=== PATIENT | male | born 1950 | race Caucasian/White ===

== ENCOUNTER 2018-10-28 07:15 | Day surgery (SDC) | payer MEDICARE ==
[2018-10-26 11:52] VITALS: BMI 25.7
[~2018-10-28 07:15] MED LIST: LACTATED RINGERS 1,000 ML IV SCH
[2018-10-28 08:07] VITALS: TEMP 97.6
[2018-10-28] MEDS ORDERED: LACTATED RINGERS 1,000 ML IV ONE ×2 (08:13)
[2018-10-28] MEDS ORDERED: LIDOCAINE 1% INJ 10MG/ML (20 ML MDV) ONE (08:18)
[2018-10-28] MEDS ORDERED: PROPOFOL 10 MG/ML 20 ML VIAL IV ONE (08:18)
--- NOTE | 2018-10-28 08:22 | P.GSHP ---
History of Present Illness H&P Date: 10/28/18 Chief Complaint: Colon polyps Patient here today for colonoscopy. He had a recent cologuard positive the patient states. The patient is a history of colon polyps. Last colonoscopy 6 years ago. No family history of colon cancer. No bowel related complaints. Past Medical History Additional Past Medical History / Comment(s): + COLOGARD History of Any Multi-Drug Resistant Organisms: None Reported Past Surgical History: Back Surgery Additional Past Surgical History / Comment(s): LAMINECTOMY. COLONOSCOPY Past Anesthesia/Blood Transfusion Reactions: No Reported Reaction Smoking Status: Former smoker - Past Family History Mother Family Medical History: No Reported History Medications and Allergies Home Medications Medication Instructions Recorded Confirmed Type Aspirin [Adult Low Dose Aspirin EC] 81 mg PO DAILY 10/26/18 10/26/18 History Multivitamins, Thera [Multivitamin 1 tab PO DAILY 10/26/18 10/26/18 History (formulary)] Allergies Allergy/AdvReac Type Severity Reaction Status Date / Time shellfish derived [Shellfish] Allergy Rash/Hives Verified 10/26/18 11:48 Surgical - Exam Vital Signs Pulse Resp BP Pulse Ox 56 L 18 162/82 99 10/28/18 08:05 10/28/18 08:05 10/28/18 08:05 10/28/18 08:05 Physical exam: General: Well-developed, well-nourished HEENT: Normocephalic, sclerae nonicteric Abdomen: Nontender, nondistended Extremities: No edema Neuro: Alert and oriented Assessment and Plan (1) Colon polyps Narrative/Plan: Will proceed with colonoscopy at this time. Current Visit: Yes Status: Acute Code(s): K63.5 - POLYP OF COLON SNOMED Code(s): 94436162
[2018-10-28 08:55] VITALS: RESP 16
[2018-10-28 09:10] VITALS: BP 154/92; PULSE 70
--- NOTE | 2018-10-28 09:36 | P.PCN ---
Date of Procedure: 10/28/18 Procedure(s) Performed: PREOPERATIVE DIAGNOSIS: Colon polyps, positive cologuard POSTOPERATIVE DIAGNOSIS: Multiple polyps, diverticulosis, mild sigmoid colitis PROCEDURE: Colonoscopy with snare polypectomy and biopsy ANESTHESIA: MAC SURGEON: Luisito Lewis M.D. SPECIMENS: Polyps ENDOSCOPIC PROCEDURE: The patient was placed on the endoscopy table in the left decubitus position. The Olympus colonoscope was inserted into the anus and passed under direct visualization to the base of the cecum. The appendiceal orifice was visualized. From that point the scope was slowly withdrawn inspecting all surfaces carefully. There were no neoplastic inflammatory or polypoid lesions throughout the cecum or ascending colon. In the mid transverse colon a small polyp was identified and removed using the snare with cautery technique. An additional small polyp was identified and removed in a similar fashion in the descending, sigmoid, and rectum. A total of 4 polyps were removed and sent to pathology. The patient had left-sided diverticulosis present. In the sigmoid colon there was noted be a small section of sigmoid colon that had mild mucosal erythema. Biopsies were taken to evaluate for colitis. This may be related to a mild nonspecific colitis or even diverticulitis. Digital rectal examination was normal. The patient was taken to the recovery room in stable condition per anesthesia guidelines. RECOMMENDATIONS: Await biopsy results. Recommend follow-up colonoscopy 5 years.
== END 2018-10-28 09:43 | disposition home or self-care (01) ==
LOC: ORWHC2ENDO 07:15
PROVIDERS: ATTEND Surgery
DX: D12.4 Benign neoplasm of descending colon (principal); D12.5 Benign neoplasm of sigmoid colon; D12.3 Benign neoplasm of transverse colon; D12.8 Benign neoplasm of rectum; K57.30 Diverticulosis of large intestine without perforation or abscess without bleeding; K52.9 Noninfective gastroenteritis and colitis, unspecified; R19.5 Other fecal abnormalities; Z86.010 Personal history of colon polyps; Z79.82 Long term (current) use of aspirin; Z91.013 Allergy to seafood; Z87.891 Personal history of nicotine dependence
CPT/HCPCS: 88305; 45380; 45385; J2001; J2704

== ENCOUNTER → 2021-01-29 | Outpatient (CLI) | payer MEDICARE ==
--- NOTE | 2021-01-29 12:25 | MR ---
EXAMINATION TYPE: MR shoulder RT wo con DATE OF EXAM: 01/29/2021 COMPARISON: Pain HISTORY: Right shoulder pain TECHNIQUE: Multiplanar, multisequence imaging of the right shoulder is performed without contrast. FINDINGS: There is a complete tear of the supraspinatus tendon with retraction the level of the later al margin of the acromion. Infraspinatus demonstrates increased signal along the anterior fibers sugg estive of partial tear near its insertion with no through thickness tear or retraction. Subscapularis tendon intact. There is fluid in the subacromial subdeltoid bursa hypertrophic arthropathy of the AC joint with mass effect upon the supraspinatus tendon and muscle. There is a degree of atrophy of the rotator cuff mu sculature correlate clinically. Small amount of fluid in the glenohumeral joint. Inferior glenohumeral ligament intact. Biceps tendon is well situated within the bicipital groove with increased fluid surrounding the tendon compatible with tendinosis. Labrum are grossly intact but non arthrogram technique. IMPRESSION: 1. Hypertrophic arthropathy of the AC joint with impingement. Complete through thickness tear of the supraspinatus tendon with retraction as discussed above. 2. Partial tear anterior fibers measuring approximately 3 mm insertion infraspinatus tendon. 3. Bicipital tendinosis.
== END | disposition home or self-care (01) ==
LOC: RADMRIMAIN 11:04
PROVIDERS: ATTEND Orthopaedic Surgery
DX: M75.111 Incomplete rotator cuff tear or rupture of right shoulder, not specified as traumatic (principal); M12.811 Other specific arthropathies, not elsewhere classified, right shoulder; M75.41 Impingement syndrome of right shoulder; M67.813 Other specified disorders of tendon, right shoulder

== ENCOUNTER → 2021-03-07 | Outpatient (CLI) | payer MEDICARE ==
[2021-03-07 11:17] LABS: Basophils % (A) 1 %; Eosinophils # (A) 0.1 k/uL (0-0.7); Eosinophils % (A) 2 %; HCT 39.9 % (39.0-53.0); HGB 13.7 gm/dL (13.0-17.5); Lymphocytes # (A) 1.4 k/uL (1.0-4.8); Lymphocytes % (A) 29 %; MCH 33.7 pg (25.0-35.0); MCHC 34.4 g/dL (31.0-37.0); MCV 98.1 fL (80.0-100.0); Mean Platelet Volume 6.8; Monocytes # (A) 0.5 k/uL (0-1.0); Monocytes % (A) 10 %; Neutrophils # (A) 2.7 k/uL (1.3-7.7); Neutrophils % (A) 55 %; Platelet Count 167 k/uL (150-450); RBC 4.07 m/uL (4.30-5.90); RDW 12.7 % (11.5-15.5); WBC 4.9 k/uL (3.8-10.6)
[2021-03-07 11:30] LABS: Potassium 4.7 mmol/L (3.5-5.1)
== END | disposition home or self-care (01) ==
LOC: LABPAT 09:55
PROVIDERS: ATTEND Orthopaedic Surgery
DX: Z01.812 Encounter for preprocedural laboratory examination (principal); M75.41 Impingement syndrome of right shoulder
CPT/HCPCS: 36415; 80051; 85025; 93005

== ENCOUNTER → 2021-03-15 | Day surgery (SDC) | payer MEDICARE ==
[~2021-03-15] MED LIST changes: +DEXAMETHASONE SOD PHOSPHATE 4 MG/ML 1 ML VIAL IV ONE; +DEXAMETHASONE SOD PHOSPHATE 4 MG/ML 1 ML VIAL ONE; +GLYCOPYRROLATE 0.2 MG/ML 2 ML VIAL ONE; +HYDROmorphone 0.5 MG/0.5 ML SYRINGE IVP PRN; +LACTATED RINGERS 1,000 ML IV ONE; +LIDOCAINE 1% INJ 10MG/ML (20 ML MDV) ONE; +MIDAZOLAM 2 MG/2 ML VIAL IV ONE; +MIDAZOLAM 2 MG/2 ML VIAL IV PRN; +ONDANSETRON 4 MG/2 ML VIAL IVP ONE; +PROPOFOL 10 MG/ML 20 ML VIAL IV ONE; +ROPIVACAINE 5 MG/ML 30 ML VIAL ONE; +SUCCINYLCHOLINE CHLORIDE 100 MG/5 ML SYR IV ONE; +fentaNYL (PF) 50 MCG/ML 2 ML AMP ONE
[2021-03-15 09:20] VITALS: TEMP 96.8
--- NOTE | 2021-03-15 09:22 | P.OP ---
Date of Procedure: 03/15/21 Preoperative Diagnosis: Right shoulder impingement Postoperative Diagnosis: 1. Right shoulder rotator cuff tear 2. Right shoulder impingement 3. Right shoulder acromioclavicular joint osteoarthritis 4. Right shoulder partial long head biceps tendon tear Procedure(s) Performed: 1. Right shoulder arthroscopic rotator cuff repair 2. Right shoulder arthroscopic subacromial decompression 3. Right shoulder arthroscopic Ventura procedure 4. Right shoulder arthroscopic biceps tenotomy Implants: 4Arthrex 4.75 swivel lock anchors Anesthesia: GETA, regional (Interscalene block) Surgeon: Ashish Savage Tool Grinder Operator External #1: Waldemar Perkins Estimated Blood Loss (ml): 11 Pathology: none sent Condition: stable Disposition: PACU Indications for Procedure: 71-year-old patient seen with progressive right shoulder pain. After treatment options were discussed, he elected to proceed with arthroscopy. Operative Findings: See description of procedure Description of Procedure: Patient underwent an interscalene block by department of anesthesia. The patient was then taken to the operative suite. The patient underwent a general anesthetic by the department of anesthesia. The patient was placed into a lateral position and secured. There was appropriate padding of the bony prominence. Right shoulder was then prepped and draped in normal sterile orthopedic fashion. We placed the extremity in 10 pounds of longitudinal traction. A posterior incision was now made for a posterior working portal site. The trocar and cannula were inserted into the glenohumeral joint. Arthroscopy was initiated. Spinal needle was now inserted anteriorly, to ascertain the anterior working portal site. An incision was now made in that area, a trocar was inserted followed by a probe. There was some hyperemia and partial tearing of the long head biceps tendon. There were grade 1 chondromalacia changes of the humeral head. The labrum was probed and found to be stable. I performed an arthroscopic biceps tenotomy. I probed the labrum and it was sewn be stable. At this point instruments removed from glenohumeral joint. Utilizing the posterior working portal site, the trocar and cannula were inserted into the subacromial space. Arthroscopy initiated. I made an incision 2 fingerbreadths lateral to the acromion. I introduced my trocar followed by my ArthroCare ablator. I now began ablating thick subacromial bursal tissue, which exposed the undersurface of the anterior acromion. There was diminished subacromial space. There was a very prominent anterior acromion. A motorized bur was introduced and a subacromial decompression was performed. I also excised some osteophytes off the inferior aspect of the distal clavicle. The AC joint was visualized and noted to be fairly arthritic. The motorized bur was introduced in the anterior portal site and a Ventura procedure was performed without difficulty, decompressing the AC joint nicely. I turned my attention to the rotator cuff. There was a 3 cm rotator cuff tear. It was retracted about 2 cm but I could pin puller the footprint. I debrided the margins getting down to stable tendon tissue. I introduced my motorized bur and abraded the footprint area, getting some petechial bleeding. I now made an accessory portal site off the lateral aspect of the acromion. I punched 2 holes medial for medial row fixation with the assistance of Waldemar TIJERINA carefully tapping the punch with a mallet as I held the punch and the camera. I now introduced both anchors into the pre-punched holes and Waldemar TIJERINA tapped them with the mallet as I held anchors and the camera. Waldemar TIJERINA now screwed the anchors in place a while I held the anchor guide and camera. All 8 limbs of suture were now passed through good bites of rotator cuff tendon. I now punched 2 holes for lateral row fixation again I held the punch and camera while Johnny TIJERINA used a mallet to tap in the punch. We now passed sutures through both anchors and individually I introduced the anchors into the pre-punch holes I held the anchor guide in position with one hand holding the camera with the other hand while Waldemra TIJERINA tensioned the sutures and screwed in the anchors one at a time. All residual suture limbs were now clipped. We had good compression of the tendon along the entire footprint. Instruments now removed from the portal site s. All portal sites were approximated with nylon suture. Sterile dressings were applied followed by a shoulder immobilizer. Waldemar TIJERINA assisted in this complex case. The patient was awakened, transferred to a bed, and taken to recovery in stable condition.
[2021-03-15 09:52] VITALS: RESP 20
[2021-03-15 10:59] VITALS: BP 137/80; PULSE 73
--- NOTE | 2021-03-16 07:41 | P.ANPRN ---
Procedure Note - Anesthesia - Nerve Block Performed Right Interscalene Single Time Out Performed: Yes Date of Procedure: 03/15/21 Procedure Start Time: 06:49 Procedure Stop Time: 06:56 Location of Patient: PreOp Indication: Acute Post-Operative Pain, Requested by Surgeon Sedation Type: Sedate with meaningful contact maintained Preparation: Sterile Prep Position: Supine Needle Types: Pajunk Needle Gauge: 21 Ultrasound used to visualize needle placement: Yes Ultrasound used to observe medication spread: Yes Blood Aspirated: No Pain Paresthesia on Injection Noted: No Resistance on Injection: Normal Image Stored and Saved: Yes Events: Uneventful and Well Tolerated (ropi .5% 25 cc plus dexamethasone 4m)
== END | disposition home or self-care (01) ==
LOC: OR 05:58
PROVIDERS: ATTEND Orthopaedic Surgery
DX: M75.101 Unspecified rotator cuff tear or rupture of right shoulder, not specified as traumatic (principal); M19.011 Primary osteoarthritis, right shoulder; S46.111A Strain of muscle, fascia and tendon of long head of biceps, right arm, initial encounter; X58.XXXA Exposure to other specified factors, initial encounter; M94.211 Chondromalacia, right shoulder; M25.711 Osteophyte, right shoulder; Z98.890 Other specified postprocedural states; Z79.82 Long term (current) use of aspirin; Z79.899 Other long term (current) drug therapy; Z88.0 Allergy status to penicillin
CPT/HCPCS: 64415; 76942; 29826; 29827; 29824; C1713; C1894; J2250; J1100; J0690; J2405; J2001; J3010; J2795; J0330; J2704

== ENCOUNTER → 2022-09-07 | Outpatient (CLI) | payer MEDICARE ==
--- NOTE | 2022-09-08 21:51 | MR ---
EXAMINATION TYPE: MR shoulder LT wo con DATE OF EXAM: 09/07/2022 COMPARISON: Outside left shoulder x-ray 4 days ago. HISTORY: Left shoulder pain and limited range of motion for 2 months. TECHNIQUE: Multiplanar, multisequence imaging of the left shoulder is performed without contrast. FINDINGS: Rotator Cuff: Significant clearing of the supraspinatus tendon with small remnant intact fibers coron al image 15 noted. Infraspinatus tendon intact. Rotator cuff muscle bulk preserved. Acromioclavicular Joint: [id number] narrowing and spurring with moderate capsular hypertrophy. Glenohumeral Joint: Large sized joint effusion extending anteriorly Labrum: The labrum appears grossly intact given limitation of non-arthrogram study. Biceps Tendon: The long head of biceps is in normal location within bicipital groove. Bone marrow signal: No focal abnormal marrow signal is appreciated. Other: No additional significant abnormality is appreciated. IMPRESSION: 1. Near-complete tear of the distal supraspinatus tendon with minimal remnant fibers intact. 2. Large glenohumeral joint effusion extending anteriorly.
== END | disposition home or self-care (01) ==
LOC: RADMRIMAIN 10:58
PROVIDERS: ATTEND Orthopaedic Surgery
DX: M75.112 Incomplete rotator cuff tear or rupture of left shoulder, not specified as traumatic (principal); M25.412 Effusion, left shoulder

== ENCOUNTER 2023-07-09 11:02 | Day surgery (SDC) | payer MEDICARE ==
--- NOTE | 2023-07-08 12:31 | P.HPOR ---
History of Present Illness H&P Date: 07/08/23 Subjective: This is a 72 year old male that presents today for initial evaluation regarding several year history of progressively worsening right wrist pain and numbness and tingling that involves the thumb, index and middle fingers. He states for the last 8 years he has had progressively increasing swelling in the wrist with activity. He denies any prior injury. He states around 8 years ago he did have an x-ray and was told at that time he had early signs of arthritis in the wrist. He also states over the last 6 months he has noticed progressively increasing numbness specifically in the middle finger and index fingers. It is worse in the morning when he wakes up. Physical Examination: RUE: AIN/PIN/Radial/Ulnar/Median motor intact. Radial/Ulnar/Median SILT. 2+/4 Radial/Ulnar pulses palpated. 5/5 APB, 5/5 FDI. Negative Finkelsteins, negative CMC grind, positive Durkan's compression. Positive scaphoid shift. Wrist Flexion 70, Wrist Extension 60. Imaging: X-Rays of the right wrist, 3 view taken in office today demonstrate advanced SLAC wrist arthritis with preserved radial lunate articulation. Impression: 1.) Right SLAC wrist arthritis 2.) Right carpal tunnel syndrome Plan: Diagnosis and treatment options were discussed with the patient. We discussed findings of SLAC wrist arthritis and treatment options for him. Right now he states that the wrist pain is more intermittent and that he can live with it and it's managed by anti-inflammatories. Regarding the right carpal tunnel syndrome. He has failed to respond to night time splinting and wishes to pursue a right endoscopic vs open carpal tunnel release. Risks and benefits of surgery including bleeding, infection, damage to surrounding tissue, need for further surgery, possible need to convert to open procedure, residual numbness were discussed and the patient wished to go forward with surgery. -Wade Abarca DO Orthopedic Hand/Upper Extremity Surgeon Past Medical History Past Medical History: Atrial Fibrillation, Hypertension, Osteoarthritis (OA) Additional Past Medical History / Comment(s): + COLALYSON E.D. arthritis wrists. numbness to finger right hand. hx Covid. History of Any Multi-Drug Resistant Organisms: None Reported Past Surgical History: Back Surgery Additional Past Surgical History / Comment(s): LAMINECTOMY, bilateral SHOULDER ATRHROSCOPY, COLONOSCOPY. Past Anesthesia/Blood Transfusion Reactions: No Reported Reaction Smoking Status: Former smoker - Past Family History Mother Family Medical History: No Reported History Sister(s) Family Medical History: Cancer Medications and Allergies Home Medications Medication Instructions Recorded Confirmed Type Multivitamins, Thera [Multivitamin 1 tab PO DAILY 10/26/18 07/03/23 History (formulary)] tadalafiL [Cialis] 5 mg PO QAM 03/13/21 07/03/23 History Apixaban [Eliquis] 5 mg PO BID 10/28/22 07/03/23 History Metoprolol Tartrate [Lopressor] 100 mg PO BID 10/28/22 07/03/23 History Allergies Allergy/AdvReac Type Severity Reaction Status Date / Time shellfish derived [Shellfish] Allergy Rash/Hives Verified 07/03/23 12:28 Penicillins AdvReac DIZZINESS Verified 07/03/23 12:28 Physical Examination Osteopathic Statement: *. No significant issues noted on an osteopathic structural exam other than those noted in the History and Physical/Consult.
[~2023-07-09 11:02] MED LIST changes: -DEXAMETHASONE SOD PHOSPHATE 4 MG/ML 1 ML VIAL IV ONE; -DEXAMETHASONE SOD PHOSPHATE 4 MG/ML 1 ML VIAL ONE; -GLYCOPYRROLATE 0.2 MG/ML 2 ML VIAL ONE; -LACTATED RINGERS 1,000 ML IV ONE; -LIDOCAINE 1% INJ 10MG/ML (20 ML MDV) ONE; -MIDAZOLAM 2 MG/2 ML VIAL IV ONE; -MIDAZOLAM 2 MG/2 ML VIAL IV PRN; -ONDANSETRON 4 MG/2 ML VIAL IVP ONE; -PROPOFOL 10 MG/ML 20 ML VIAL IV ONE; +Pre Op ABX Message 1 EACH MISC MISCELLANE ONE; -ROPIVACAINE 5 MG/ML 30 ML VIAL ONE; -SUCCINYLCHOLINE CHLORIDE 100 MG/5 ML SYR IV ONE; -fentaNYL (PF) 50 MCG/ML 2 ML AMP ONE
[2023-07-09 11:25] VITALS: RESP 16; TEMP 97.1
[2023-07-09] MEDS ORDERED: BUPIVACAINE (PF) 0.5% 30 ML VIAL SQ ONE ×2 (12:35→12:47)
[2023-07-09] MEDS ORDERED: LIDOCAINE 1% INJ 10MG/ML (20 ML MDV) SQ ONE ×2 (12:36→12:47)
[2023-07-09] MEDS ORDERED: fentaNYL (PF) 50 MCG/ML 2 ML AMP ONE (12:38)
[2023-07-09] MEDS ORDERED: MIDAZOLAM 2 MG/2 ML VIAL ONE (12:38)
[2023-07-09] MEDS ORDERED: PROPOFOL 10 MG/ML 20 ML VIAL IV ONE (12:38)
--- NOTE | 2023-07-09 12:59 | P.OP ---
Date of Procedure: 07/09/23 Preoperative Diagnosis: Right carpal tunnel syndrome Postoperative Diagnosis: Right carpal tunnel syndrome Procedure(s) Performed: Right endoscopic carpal tunnel release Anesthesia: MAC Surgeon: Wade Abarca Dev Ops Engineer #1: Waldemar Perkins Estimated Blood Loss (ml): 0 Pathology: none sent Condition: stable Disposition: PACU Description of Procedure: This is a 73 year old male who presents today for a right endoscopic carpal tunnel release after having failed conservative treatment in the past. Risks and benefits of surgery were discussed with the patient including bleeding, damage to surrounding tissue, infection, need to convert to open procedure, need for further surgery as well as risks of anesthesia including pulmonary embolism and even and the patient wished to proceed with surgical intervention. The patients was seen in the pre-operative area by myself. Consent and H&P were completed and updated. The correct extremity was marked in the pre-operative area by myself and all other questions were answered. Operative Narrative: The patient was brought to the operating room by the department of anesthesia. They remained on the portable stretcher and a rolling hand table was brought to the side of the operative extremity. Pre-operative time out was performed indicating the correct patient, procedure and laterality. All in the room agreed. The patient was then drifted off to sleep by the department of anes thesia. MAC anesthesia was utilized and a 50:50 mixture of 1% Lidocaine and 0.5% bupivacaine was injected into the subcutaneous tissues of the palmar skin, 8ccs total. A nonsterile tourniquet was then applied to the operative extremity and the right upper extremity was then prepped and draped in normal sterile fashion. The operative extremity was the exsanguinated with an esmarch bandage and the tourniquet was inflated to 250mmHg. 15 blade scalpel was utilized to make a transverse incision on the palmar skin just ulnar to the palmaris longus tendon at the level of the distal wrist crease. Ragnell retractor was then placed radially and blunt dissection was performed to reveal the distal forearm fascia. This was lifted with fine Raul pick ups and Littler tenotomy scissors were then used to open the forearm fascia transversely and a double skin hook was then placed. Hamate finder was placed into the carpal tunnel and then sequential sized dilators were inserted followed by the synovial elevator to separate the flexor tenosynovium from the undersurface of the transverse carpal ligament and a washboard texture was felt. The MicroAire endoscopic carpal tunnel release system gun was the then inserted into the carpal tunnel hugging the deep portion of the transverse carpal ligament in line with the base of the ring finger. Transverse fibers of the ligament were directly visualized. Pressure was applied on the palm to reveal the distal extent of the transverse carpal ligament. The blade was then deployed and the distal half of the transverse carpal ligament was released. The scope was then brought distal again and remaining transverse fibers were incised with the blade. The proximal half of the transverse carpal ligament was then divided and again the scope was advanced distal and remaining transverse fibers were incised with the blade. The radial and ulnar leaflets were directly visualized and mobile consistent with complete release. Tenotomy scissors were then util ized to release the remaining distal forearm fascia under direct visualization taking care to preserve the palmar cutaneous branch of the median nerve. Skin closure was performed with interrupted 4-0 Monocryl suture followed by steri strips. Sterile dressing was applied consisting 4x4s, Webril, and an rita bandage. Tourniquet was let down and the hand immediately was well perfused. The patient was then woken by the department of anesthesia and transferred to PACU in stable condition. Waldemar TIJERINA was present for the case in its entirety and assisted in major portions of the case and protection of vital neurovascular structures. Wade Abarca D.O. Orthopedic Hand/Upper Extremity Surgeon
[2023-07-09 13:25] VITALS: BP 148/83; PULSE 75
== END 2023-07-09 13:57 | disposition home or self-care (01) ==
LOC: OR 11:02
PROVIDERS: ATTEND Orthopaedic Surgery Hand Surgery
DX: G56.01 Carpal tunnel syndrome, right upper limb (principal); M19.031 Primary osteoarthritis, right wrist; I10 Essential (primary) hypertension; I48.91 Unspecified atrial fibrillation; Z79.01 Long term (current) use of anticoagulants; Z86.16 Personal history of COVID-19; Z87.891 Personal history of nicotine dependence; Z88.0 Allergy status to penicillin; Z79.899 Other long term (current) drug therapy
CPT/HCPCS: 29848; J2250; J2001; J3010; J2704; J0665

== ENCOUNTER 2024-03-16 08:54 | Day surgery (SDC) | payer MEDICARE ==
[2024-03-10 12:39] VITALS: BMI 25.7
[~2024-03-16 08:54] MED LIST changes: -HYDROmorphone 0.5 MG/0.5 ML SYRINGE IVP PRN; -LACTATED RINGERS 1,000 ML IV SCH; +LIDOCAINE 1% (10MG/ML) FOR IV START INTRADERMA PRN; -Pre Op ABX Message 1 EACH MISC MISCELLANE ONE
[2024-03-16 09:22] VITALS: RESP 18; TEMP 97
[2024-03-16] MEDS: LACTATED RINGERS 1,000 ML IV SCH (09:28)
[2024-03-16] MEDS: IV FLUID CONTINUATION 1,000 ML IV ONE ×2 (09:29→10:45)
[2024-03-16] MEDS ORDERED: LIDOCAINE 2% (PF) 20 MG/ML 5 ML VIAL ONE (10:16)
[2024-03-16] MEDS ORDERED: PROPOFOL 10 MG/ML 20 ML VIAL IV ONE (10:16)
--- NOTE | 2024-03-16 10:20 | P.GSHP ---
History of Present Illness H&P Date: 03/16/24 Chief Complaint: Screening, history of polyps 74-year-old male here for colonoscopy. Last colonoscopy 5 years ago. Patient had multiple polyps at that time. 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 No bowel complaints. No family history of colon cancer. Past Medical History Past Medical History: Atrial Fibrillation, Hypertension, Osteoarthritis (OA) Additional Past Medical History / Comment(s): + COLOGARD, E.D. arthritis wrists. numbness to finger right hand. hx Covid. History of Any Multi-Drug Resistant Organisms: None Reported Past Surgical History: Back Surgery, Orthopedic Surgery Additional Past Surgical History / Comment(s): LAMINECTOMY, bilateral SHOULDER ATRHROSCOPY, COLONOSCOPY. RT CTR Past Anesthesia/Blood Transfusion Reactions: No Reported Reaction Smoking Status: Former smoker - Past Family History Mother Family Medical History: No Reported History Sister(s) Family Medical History: Cancer Medications and Allergies Home Medications Medication Instructions Recorded Confirmed Type Multivitamins, Thera [Multivitamin 1 tab PO DAILY 10/26/18 03/16/24 History (formulary)] tadalafiL [Cialis] 5 mg PO QAM 03/13/21 03/16/24 History Apixaban [Eliquis] 5 mg PO BID 10/28/22 03/16/24 History Metoprolol Tartrate [Lopressor] 100 mg PO BID 10/28/22 03/16/24 History Allergies Allergy/AdvReac Type Severity Reaction Status Date / Time shellfish derived [Shellfish] Allergy Rash/Hives Verified 03/16/24 09:12 Penicillins AdvReac DIZZINESS Verified 03/16/24 09:12 Surgical - Exam Vital Signs Temp Pulse Resp BP Pulse Ox 97.0 F L 76 18 154/79 99 03/16/24 09:19 03/16/24 09:19 03/16/24 09:19 03/16/24 09:19 03/16/24 09:19 Physical exam: General: Well-developed, well-nourished HEENT: Normocephalic, sclerae nonicteric Abdomen: Nontender, nondistended Extremities: No edema Neuro: Alert and oriented Assessment and Plan (1) Colon polyps Narrative/Plan: Will proceed with colonoscopy at this time. Current Visit: No Status: Acute Code(s): K63.5 - POLYP OF COLON SNOMED Code(s): 17358313
--- NOTE | 2024-03-16 10:42 | P.PCN ---
Date of Procedure: 03/16/24 Procedure(s) Performed: PREOPERATIVE DIAGNOSIS: Colon cancer screening with history of polyps POSTOPERATIVE DIAGNOSIS: Multiple colon polyps, diverticulosis PROCEDURE: Colonoscopy with snare polypectomy ANESTHESIA: MAC SURGEON: Luisito Lewis M.D. SPECIMENS: Polyps ENDOSCOPIC PROCEDURE: The patient was placed on the endoscopy table in the left decubitus position. The Olympus colonoscope was inserted into the anus and passed under direct visualization to the base of the cecum. The appendiceal orifice was visualized. From that point the scope was slowly withdrawn inspecting all surfaces carefully. There were no neoplastic inflammatory or polypoid lesions throughout the cecum. In the ascending colon and hepatic flexure there were 4 polyps removed using the snare with cautery technique. The remainder of the transverse descending colon appeared normal. In the sigmoid another small polyp was seen and also removed using the snare with cautery technique. Remainder of the sigmoid and rectum was normal. The patient had mild left-sided diverticulosis. Digital rectal examination was normal. The patient was taken to the recovery room in stable condition per anesthesia guidelines. RECOMMENDATIONS: Await biopsy results. Repeat colonoscopy 3 years.
[2024-03-16 10:59] VITALS: BP 125/80; PULSE 72
== END 2024-03-16 11:24 | disposition home or self-care (01) ==
LOC: ORWHC2ENDO 08:54
PROVIDERS: ATTEND Surgery
DX: Z12.11 Encounter for screening for malignant neoplasm of colon (principal); D12.2 Benign neoplasm of ascending colon; K57.30 Diverticulosis of large intestine without perforation or abscess without bleeding; I10 Essential (primary) hypertension; I48.91 Unspecified atrial fibrillation; Z86.010 Personal history of colon polyps; Z79.01 Long term (current) use of anticoagulants; Z86.16 Personal history of COVID-19; Z87.891 Personal history of nicotine dependence; Z88.0 Allergy status to penicillin; Z91.013 Allergy to seafood; Z79.899 Other long term (current) drug therapy
CPT/HCPCS: 88305; 45385; J2704; J2001